=== PATIENT | male | born 1960 | race Caucasian/White ===

== ENCOUNTER 2018-11-07 06:32 | Day surgery (SDC) | payer OTHER ==
[2018-11-07] MEDS ORDERED: Sodium Chloride 0.9% 1,000 ML IV SCH (07:00)
[2018-11-07] MEDS ORDERED: Propofol 200 MG/20 ML SDV ONE (07:08)
[2018-11-07] MEDS ORDERED: Midazolam 1 MG/ML 2 ML SDV ONE (07:08)
[2018-11-07] MEDS ORDERED: fentaNYL 100 MCG/2 ML SDV ONE (07:08)
[2018-11-07 09:25] VITALS: BP 131/90
--- NOTE | 2018-11-10 08:34 | OR ---
DATE OF PROCEDURE: 11/07/2017 PROCEDURE: Esophagogastroduodenoscopy. FINDINGS: Inflammation consistent with reflux disease (biopsy in all 4 quadrants). PREOPERATIVE DIAGNOSIS: Concern for gastroesophageal reflux disease. POSTOPERATIVE DIAGNOSIS: Concern for gastroesophageal reflux disease. RISKS: Risks, benefits, alternatives, and limitations including, but not limited to infection, bleeding, and perforation were explained to the patient who wished to proceed. PROCEDURE IN DETAIL: The patient was placed in the left lateral decubitus position. The EGD scope was introduced and advanced atraumatically into the second part of the duodenum. The scope was brought back and retroflexed. Small hiatal hernia was noted. No evidence of gastritis or ulceration. At the GE junction, there was inflammation consistent with reflux disease. This was biopsied approximately 6 to 8 times in all 4 quadrants. The air was removed from the stomach. The esophagus inspected. The patient tolerated the procedure well. Rogelio Beauchamp MD /[id number]
== END 2018-11-07 09:10 | disposition home or self-care (01) ==
LOC: JP.SDS 06:32
PROVIDERS: ATTEND Surgery
DX: K21.0 Gastro-esophageal reflux disease with esophagitis (principal); K44.9 Diaphragmatic hernia without obstruction or gangrene; I10 Essential (primary) hypertension; E66.9 Obesity, unspecified; E78.5 Hyperlipidemia, unspecified; K21.9 Gastro-esophageal reflux disease without esophagitis
CPT/HCPCS: 43239; J2250; J2704; J3010; J7030; 88305

== ENCOUNTER 2024-02-28 07:41 | Day surgery (SDC) | payer MEDICARE, OTHER ==
[2024-02-28] MEDS ORDERED: fentaNYL 100 MCG/2 ML SDV ONE (08:13)
[2024-02-28] MEDS ORDERED: Propofol 200 MG/20 ML SDV ONE (08:13)
[2024-02-28] MEDS: Sodium Chloride 0.9% 1,000 ML IV SCH (08:36)
[2024-02-28 09:48] VITALS: BP 131/77; PULSE 54
== END 2024-02-28 10:15 | disposition home or self-care (01) ==
LOC: JP.SDS 07:41
PROVIDERS: ATTEND Surgery
DX: K22.89 Other specified disease of esophagus (principal); K21.00 Gastro-esophageal reflux disease with esophagitis, without bleeding; R10.13 Epigastric pain; I10 Essential (primary) hypertension; E66.9 Obesity, unspecified
CPT/HCPCS: 43239; J2704; J3010; J7030; 88305